=== PATIENT | female | born 1970 | race Caucasian/White ===

== ENCOUNTER → 2019-07-25 16:32 | Outpatient (CLI) | payer OTHER, SELFPAY ==
[2019-07-25 17:38] LABS: Follicle Stimulating Hormone 45.5 mIU/mL; Thyroid Stim Hormone (TSH) 2.38 uIU/mL (0.358-3.74)
== END ==
PROVIDERS: PCP Internal Medicine; Visit Provider Obstetrics & Gynecology
DX: E03.9 Hypothyroidism, unspecified (principal); R61 Generalized hyperhidrosis
CPT/HCPCS: 83001; 84443

== ENCOUNTER → 2020-08-07 17:09 | Outpatient (CLI) | payer OTHER, SELFPAY ==
[2020-08-07 18:23] LABS: Free T3 2.6 pg/mL (2.18-3.98); T4 Free Direct 0.97 ng/dL (0.76-1.46); Thyroid Stim Hormone (TSH) 3.88 uIU/mL (0.358-3.74)
[2020-08-13 04:29] LABS: HPV APTIMA, High Risk Negative (Negative)
[2020-08-13 09:43] LABS: HPV Reflexed? YES, CHARGE PATIENT
== END ==
PROVIDERS: PCP Internal Medicine; Visit Provider Student in an Organized Health Care Education/Training Program
DX: E03.9 Hypothyroidism, unspecified (principal); Z12.4 Encounter for screening for malignant neoplasm of cervix
CPT/HCPCS: 36415; 84439; 84443; 84481; 87624; 88175; G0145

== ENCOUNTER → 2020-09-11 15:24 | Outpatient (CLI) | payer OTHER, SELFPAY ==
--- NOTE | 2020-09-11 15:28 | BI_ITS ---
MAMMOGRAPHY - BILATERAL SCREENING REASON FOR EXAM: Female, 49 years old. Routine annual screening examination. PERTINENT HISTORY: Aunt with breast cancer. TECHNIQUE: Digital bilateral breast emeli (3D mammographic acquisition) in the CC and MLO projections. 2-D mediolateral oblique (MLO) and craniocaudad (CC) views of both breasts were obtained. CAD: Full Field Digital Mammography with Computer Added Detection was performed. COMPARISON: Comparison is made with prior study via 05/28/2017 and 05/07/2016. FINDINGS: Breast Composition: There are scattered areas of fibroglandular density. Focal cluster of microcalcification is seen in the upper lateral aspect of the right breast as compared to prior examination. The patient will be recalled for additional views including compression spot views. Stable small benign appearing bilateral axillary nodes. No other significant abnormalities are identified. BI/SCREEN MAMM (CAD) W/EMELI BILAT IMPRESSION: Focal cluster microcalcification seen in the upper lateral aspect of right breast as compared to prior study. The patient will be recalled for additional views including compression magnification spot views. Recall Side: Right Breast ASSESSMENT CATEGORY: BIRADS Category 0: Incomplete. Need additional imaging evaluation. A letter regarding these results will be sent to the patient by the facility within 30 days. Approximately 10% of breast cancers are not detected by mammography. A normal mammogram should not delay biopsy of a clinically suspicious abnormality. [id number] Electronically Signed: Colton Saleem, at 9:36 EST , Service support ,
== END ==
PROVIDERS: PCP Internal Medicine; Referring Provider Student in an Organized Health Care Education/Training Program; Visit Provider Student in an Organized Health Care Education/Training Program
DX: Z12.31 Encounter for screening mammogram for malignant neoplasm of breast (principal)
CPT/HCPCS: 77063; 77067

== ENCOUNTER → 2020-09-19 13:11 | Outpatient (CLI) | payer OTHER, SELFPAY ==
[2020-09-19 14:23] LABS: T4 Free Direct 1.21 ng/dL (0.76-1.46); Thyroid Stim Hormone (TSH) 2.39 uIU/mL (0.358-3.74)
== END ==
PROVIDERS: PCP Internal Medicine; Visit Provider Student in an Organized Health Care Education/Training Program
DX: E03.9 Hypothyroidism, unspecified (principal)
CPT/HCPCS: 36415; 84439; 84443

== ENCOUNTER → 2020-09-26 08:51 | Outpatient (CLI) | payer OTHER, SELFPAY ==
--- NOTE | 2020-09-26 08:52 | BI_ITS ---
MAMMOGRAPHY - BILATERAL SCREENING REASON FOR EXAM: Female, 49 years old. Routine annual screening examination. PERTINENT HISTORY: Abnormal screening mammogram. TECHNIQUE: Compression magnification views of the right breast were obtained. CAD: Full Field Digital Mammography with Computer Added Detection was performed. COMPARISON: Comparison is made with prior mammogram dated 09/11/2020. FINDINGS: Breast Composition: There are scattered areas of fibroglandular density. Persistent clustered microcalcification in the upper lateral aspect of the right breast. A biopsy is recommended. No other significant abnormalities are identified. BI/DIAG MAMM W/CAD, UNILAT IMPRESSION: Persistent cluster of microcalcifications as described. Biopsy is recommended. ASSESSMENT CATEGORY: BIRADS Category 4: Suspicious - Biopsy Should Be Considered. A letter regarding these results will be sent to the patient by the facility within 30 days. Approximately 10% of breast cancers are not detected by mammography. A normal mammogram should not delay biopsy of a clinically suspicious abnormality. [id number] Electronically Signed: Colton Saleem MD at 9:43 EST , Service support ,
== END ==
PROVIDERS: PCP Internal Medicine; Referring Provider Student in an Organized Health Care Education/Training Program; Visit Provider Student in an Organized Health Care Education/Training Program
DX: R92.8 Other abnormal and inconclusive findings on diagnostic imaging of breast (principal)
CPT/HCPCS: 77065

== ENCOUNTER → 2020-10-10 08:29 | Outpatient (CLI) | payer OTHER, SELFPAY ==
[2020-10-04 14:36] VITALS: BMI 41.9
--- NOTE | 2020-10-10 | BRBX_PTH ---
PATIENT: ADELITA CARNEY LOC: [facility] U#:[id number] AGE/SX: 54/F ROOM: RE10/10/[address]: Dr. Ayah Moran MD : 1970 BED: DIS: SPEC #: [id number] RECD: 10/10/20 11:19 STATUS: IVETH REEddie #: [id number] HUMZA: 10/10/20 00:[address]: Ayah Moran DEPT: SURGICAL PATHOLOGY RECD BY: Campos Kaufman ENTERED: 10/10/20 11:20 SP TYPE: BREAST BX OTHR DR: Dr. Carin Brennan MD Tissues: Right breast, NOS Procedures: Surgery Specimen Level IV HEADER OPERATION: Right breast stereotactic needle core biopsy PRE-OP DIAGNOSIS: Microcalcifications upper medial quadrant TISSUE SUBMITTED: Right breast ISCHEMIC TIME: 1 minute FIXATION TIME: 10 hours MICROSCOPIC DIAGNOSIS Right breast, stereotactic core biopsy: Fibroadenoma with clustered microcalcifications. Benign ducts with associated focal microcalcifications. AM:leilani 10/11/2020 MICROSCOPIC DESCRIPTION Slides are reviewed. GROSS DESCRIPTION Received is one container labeled with the patient's name and not further designated. The specimen consists of multiple irregular fragments of yellow-red soft tissue that in aggregate measure 5 x 3 x 0.2 cm. The specimen is totally submitted in two cassettes. / AM:leilani 10/10/20 TC:5 CPT: 86413
--- NOTE | 2020-10-10 10:36 | PCM.OPRPT ---
Report of Operation Date of Procedure: 10/10/20 Pre-Operative Diagnosis: Right breast microcalcifications?medial Post-Operative Diagnosis: Same Surgery/Procedure Performed:: Stereotactic guided right breast biopsy Specimen's removed: Right breast medial microcalcifications Estimated Blood Loss (mL): 40 cc Description of Procedure: Procedure: Right stereotactic core biopsy Indications: 49 year-old female with microcalcifications in the medial aspect of the right breast. Initial office note did say lateral; however there calcifications which are more clustered on the medial aspect the ones in the lateral or not as concerning an addendum was made to patient's mammography after discussing with the radiologist as well. Risk benefits were discussed the patient and she elected to proceed with stereotactic core biopsy with clip placement Description of procedure: Patient was brought into the mammography suite and laid prone on the stereotactic table. A timeout was completed verifying correct patient, procedure, site, specially, prior to beginning procedure. The right breast was prepped and draped in usual sterile fashion and using local anesthesia was obtained with 1% lidocaine. Patient's right breast was positioned and placed into compression. Initial film showed calcifications are in the center of the compression paddle. 15? views were then taken. The calcifications were localized. The left breast was prepped draped in usual sterile fashion. An 8-gauge mammotome was set up according to the digital coordinates. The tract of the mammotome was anesthetized with local anesthesia and an incision was made with the 11 blade scalpel at the entry site. The mammotome was advanced to the prefire state. Pre-prior films were checked and verified. The mammotome was fired. Post fire films were also checked and verified. Biopsies were taken from 9:00 to 2:00. The specimen was x-rayed and all the calcifications were within the specimen. Mammotome clip was placed at the 12 o'clock position. The mammotome was removed from the breast. An additional films were taken which showed all calcifications were removed and a clip was in place. Patient did have decent amount of bleeding likely a small arterial pressure has been held for an hour. 4-0 nylon suture was placed. Pressure was held for hemostasis. Did continue to watch the area for another 20 minutes there is minimal blood on dressing. Once hemostasis was assured the wound was dressed with OpSite. The patient tolerated the procedure well and was discharged from the mammography suite good condition. - Complications bleeding at site - controlled with pressure
== END ==
PROVIDERS: PCP Internal Medicine; Referring Provider Surgery; Visit Provider Surgery
DX: R92.0 Mammographic microcalcification found on diagnostic imaging of breast (principal)
CPT/HCPCS: 19081; 88305; J7050

== ENCOUNTER → 2021-01-25 07:57 | Outpatient (CLI) | payer OTHER, SELFPAY ==
[2021-01-09 16:05] VITALS: BMI 42.5
--- NOTE | 2021-01-25 08:02 | ECHOCS_ITS ---
Reason For Study: HTN Procedure This was a 2D Doppler, Color Flow transthoracic echocardiogram. The study was technically difficult. Contrast injection was performed. Exam performed in department. Left Ventricle Normal LV size. Left ventricular systolic function is normal. The estimated ejection fraction is 60 %. Stage 2 diastolic dysfunction. No regional wall motion abnormalities noted. Right Ventricle Normal RV size. Normal systolic function. Atria Normal left atrium. Normal right atrium. Mitral Valve Normal mitral valve. Tricuspid Valve Normal tricuspid valve. Mild (1+) tricuspid valve insufficiency. Pulmonary artery systolic pressure is 38 mmHg. Aortic Valve Trisinus/trileaflet aortic valve. Pulmonic Valve The pulmonic valve is not well visualized. Great Vessels Normal aortic root. The pulmonary artery is normal size. Normal inferior vena cava. Pericardium/Pleural No pericardial effusion. Medication 22 gauge I.V. with prn adaptor inserted into right arm. Diluted definity 3ml given slow IV push to enhance endocardial definition. MMode/2D Measurements & Calculations LVIDd: 5.1 cm IVSd: 0.68 cm Ao root diam: 3.3 cm LVIDs: 3.3 cm LVPWd: 0.71 cm RVDd: 3.5 cm FS: 34.8 % LAV(MOD-bp): 45.4 ml LA A4 area: 15.3 cm2 LA dimension(2D): 3.6 cm LAV(MOD-bp) Indexed: 20.7 ml/m2 LAV(MOD-sp2): 49.6 ml LAV(MOD-sp4): 40.2 ml RA A4 area: 13.5 cm2 Time Measurements MV dec time: 0.22 sec Doppler Measurements & Calculations MV E max xander: 87.6 cm/sec Lat Peak E' Xander: 8.7 cm/sec Med Peak E' Xander: 6.7 cm/sec MV A max xander: 80.1 cm/sec E/E' lat: 10.1 E/E' med: 13.1 MV E/A: 1.1 Ao V2 max: 131.0 cm/sec LV V1 max: 91.4 cm/sec PA V2 max: 83.6 cm/sec Ao max P.9 mmHg LV V1 max P.3 mmHg PI end-d xander: 92.6 cm/sec TR max xander: 292.6 cm/sec TR max P.2 mmHg ECHO/Echo Complete W/ Contrast Interpretation Summary Normal LV size. Left ventricular systolic function is normal. The estimated ejection fraction is 60 %. Stage 2 diastolic dysfunction. Ordering Physician: Zheng Osorio Referring Physician: LUCRECIA HARMON Performed By: Jennifer Cruz, JF, RVT
== END ==
PROVIDERS: PCP Internal Medicine; Referring Provider Internal Medicine Cardiovascular Disease; Visit Provider Internal Medicine Cardiovascular Disease
DX: I10 Essential (primary) hypertension (principal)
CPT/HCPCS: 93306; Q9957; A4216; C8929

== ENCOUNTER 2021-11-25 16:05 | Outpatient (CLI) | payer OTHER, SELFPAY ==
[2021-11-25 17:22] LABS: Free T3 2.5 pg/mL (2.18-3.98); T4 Free Direct 0.91 ng/dL (0.76-1.46); Thyroid Stim Hormone (TSH) 4.74 uIU/mL (0.358-3.74)
== END 2021-11-25 23:59 | disposition home or self-care (01) ==
LOC: WOBLAB 16:06
PROVIDERS: PCP Internal Medicine; Visit Provider Student in an Organized Health Care Education/Training Program
DX: E03.9 Hypothyroidism, unspecified (principal)
CPT/HCPCS: 36415; 84439; 84443; 84481

== ENCOUNTER 2021-12-03 15:46 | Outpatient (CLI) | payer OTHER, SELFPAY ==
--- NOTE | 2021-12-03 15:48 | BI_ITS ---
MAMMOGRAPHY - BILATERAL SCREENING REASON FOR EXAM: Female, 51 years old. Routine annual screening examination. PERTINENT HISTORY: Aunt with breast cancer. Prior right stereotactic breast biopsy for calcifications. TECHNIQUE: Digital bilateral breast emeli (3D mammographic acquisition) in the CC and MLO projections. 2-D mediolateral oblique (MLO) and craniocaudad (CC) views of both breasts were obtained. CAD: Full Field Digital Mammography with Computer Added Detection was performed. COMPARISON: Comparison is made with prior study dated 09/26/2020 and 09/11/2020. FINDINGS: Breast Composition: There are scattered areas of fibroglandular density. There are no dominant masses or suspicious calcifications. A tissue clip marker is seen in the medial retroareolar region of the right breast. The calcifications have decreased in number as compared to prior study. No other significant abnormalities are identified. BI/SCRN MAMM (CAD)W/EMELI BILAT IMPRESSION: Status post stereotactic biopsy of the calcifications in the right breast. Yearly follow-up mammogram recommended. (A) ASSESSMENT CATEGORY: BIRADS Category 2: Benign. A letter regarding these results will be sent to the patient by the facility within 30 days. Approximately 10% of breast cancers are not detected by mammography. A normal mammogram should not delay biopsy of a clinically suspicious abnormality. [id number] Electronically Signed: Colton Saleem MD at 8:22 EDT ,
== END 2021-12-03 23:59 | disposition home or self-care (01) ==
LOC: OPBI 15:46
PROVIDERS: PCP Internal Medicine; Referring Provider Student in an Organized Health Care Education/Training Program; Visit Provider Student in an Organized Health Care Education/Training Program
DX: Z12.31 Encounter for screening mammogram for malignant neoplasm of breast (principal)
CPT/HCPCS: 77063; 77067

== ENCOUNTER → 2022-02-28 | Outpatient (CLI) | payer OTHER, SELFPAY ==
[2022-02-28 12:16] LABS: Free T3 2.6 pg/mL (2.18-3.98); T4 Free Direct 0.94 ng/dL (0.76-1.46); Thyroid Stim Hormone (TSH) 1.97 uIU/mL (0.358-3.74)
== END | disposition home or self-care (01) ==
LOC: WOBLAB 11:12
PROVIDERS: PCP Internal Medicine; Visit Provider Student in an Organized Health Care Education/Training Program
DX: E03.9 Hypothyroidism, unspecified (principal)
CPT/HCPCS: 36415; 84439; 84443; 84481

== ENCOUNTER 2022-03-11 13:56 | Emergency (ER) | payer OTHER, SELFPAY ==
[2022-03-11 13:57] VITALS: BP 161/106; PULSE 108; RESP 18; TEMP 36.6; O2SAT 98; BMI 41.5
--- NOTE | 2022-03-11 15:02 | ED.VIS.GI ---
HPI HPI - GI History of Present Illness Chief Complaint: Abd Pain Narrative Narrative: 51-year-old female presenting with abdominal pain which is worse for 2 days. She states she feels like she is bloated. Intermittently she has some nausea but for the most part she does not. She describes cramping everywhere. She has not had a bowel movement in 2 days. She took Imodium today which did not improve her symptoms. Denies previous abdominal surgeries. No urinary complaints or vaginal complaints. No fever, chills. PFSH PFSH Medical History Depression Essential (primary) hypertension Hypothyroid Morbid obesity Home Medications citalopram 20 mg tablet 20 mg PO DAILY 10/04/20 [History Last Taken Unknown] hydrochlorothiazide 25 mg tablet 25 mg PO DAILY #90 tabs 07/15/21 [Rx Last Taken Unknown] levothyroxine 88 mcg tablet (Synthroid) 100 mcg PO DAILY 07/15/21 [History Last Taken Unknown] lisinopril 20 mg tablet 20 mg PO DAILY #90 tabs 07/15/21 [Rx Last Taken Unknown] dicyclomine 10 mg capsule 10 mg PO TID PRN cramps #20 caps 03/11/22 [Rx Last Taken Unknown] ondansetron 4 mg disintegrating tablet 4 mg PO Q8H PRN nausea and vomiting #14 tabs 03/11/22 [Rx Last Taken Unknown] Allergy/AdvReac Type Severity Reaction Status Date / Time benzoyl peroxide Allergy Mild Other Verified 03/11/22 13:59 hydrocodone [From Vicodin] Allergy Mild Other Verified 03/11/22 13:59 coconut Allergy lip Verified 03/11/22 13:59 swelling Family History Father Diabetes Hypertension CAD (coronary artery disease) CABG Mother Heart disease Thyroid disorder Son Cancer Uncle CAD (coronary artery disease) Myocardial infarction from [place] age 70 had previous CAD Surgical History H/O foot surgery History of endometrial ablation History of wisdom tooth extraction Social History Smoking Status: Never smoker alcohol intake: never ROS ROS ED Constitutional Constitutional ED: Denies chills or fever(s) ENT ENT ED: Denies rhinorrhea or sore throat Cardiovascular Cardiovascular: Denies chest pain or palpitations Respiratory/Chest Respiratory/Chest: Denies cough or dyspnea Gastrointestinal Gastrointestinal: Reports abdominal pain, constipation and nausea; Denies diarrhea Genitourinary Genitourinary ED: Denies dysuria or hematuria Musculoskeletal Musculoskeletal: Denies arthralgias or myalgias Integumentary Denies abscess Neurologic Neurologic: Denies headache(s) or paresthesias Psychiatric Psychiatric: Denies anxiety or depression EXAM Physical Exam Const Vital Signs: 03/11/22 13:57 03/11/22 17:06 Temperature 98 F Temperature Source Temporal Pulse Rate 108 H 74 Respiratory Rate 18 16 Blood Pressure 161/106 H 144/85 H Blood Pressure Mean 124 104 Pulse Ox 98 97 Oxygen Delivery Method Room Air Room Air Positive well nourished General Appearance ED: NAD; Negative for pallor HEENT Reports moist mucous membranes Eyes PERRL and EOMs intact bilaterally Resp normal respiratory effort and clear to auscultation bilaterally Cardio regular rate Rate: tachycardic GI GI Narrative: Benign abdomen. No peritoneal signs. Mild tenderness noted to the right upper quadrant without saba David sign. No CVA tenderness. Palpation: soft Back/Spine no CVA tenderness Neuro CN's II-XII intact bilaterally Sensorium / Orientation: alert, oriented to person, oriented to place and oriented to time Motor Exam: strength 5/5 throughout Psych mental status grossly normal Skin General Skin Exam: Negative for jaundice or pallor MDM MDM MDM Narrative Medical decision making narrative: Patient presenting with diffuse crampy abdominal pain. She initially reported constipation. I did blood work and her CBC and CMP are within normal limits. Lipase negative. Urinalysis negative for infection. Patient given morphine and Zofran and her symptoms did improved. I obtained an acute abdominal series which on my interpretation shows a nonobstructive gas pattern. The radiologist reads this as obstruction cannot be excluded. When I went back to evaluate the patient she states she had a couple episodes of diarrhea while she was here. She describes it as black but she also took Pepto-Bismol before coming. Her abdominal exam is benign. I did mortgage loan counselor her on with the radiologist had read but that I did not think she had an obstruction. She stated emphatically that she does not believe she does either. Patient will be given Zofran and Bentyl for home. She was given return precautions if her pain should become acutely worse or her nausea vomiting is uncontrolled. She is discharged home in stable condition. Impression: 1. Abdominal pain 2. Nausea 3. Constipation resolved Lab Data Attestation: I reviewed the patient's lab results. Labs: Laboratory Results - last 24 hr 03/11/22 03/11/22 03/11/22 15:10 15:10 15:25 WBC 8.9 RBC 4.65 Hgb 13.5 Hct 41.0 MCV 88.2 MCH 29.0 MCHC 32.9 RDW Std Deviation 45.0 H RDW Coeff of Cesar 14.0 Plt Count 262 MPV 9.5 Immature Gran % (Auto) 0.600 Neut % (Auto) 67.3 Lymph % (Auto) 24.8 Bowman % (Auto) 6.1 Eos % (Auto) 0.7 Baso % (Auto) 0.5 Absolute Neuts (auto) 6.0 Absolute Lymphs (auto) 2.20 Nucleated RBC % 0 Sodium 138 Potassium 3.9 Chloride 103 Carbon Dioxide 29.0 Anion Gap 6 BUN 11 Creatinine 0.72 Estim Creat Clear Calc 81.31 Est GFR (MDRD) Af Amer 108 Est GFR (MDRD) Non-Af 89 BUN/Creatinine Ratio 15.2 Glucose 113 H Calcium 9.1 Total Bilirubin 0.70 AST 20 ALT 31 Alkaline Phosphatase 100 Total Protein 7.6 Albumin 3.7 Globulin 3.9 Albumin/Globulin Ratio 0.9 Lipase 104 Urine Color Yellow Urine Clarity Clear Urine pH 7.0 Ur Specific Ackley 1.010 Urine Protein 15 H Urine Glucose (UA) Normal Urine Ketones Negative Urine Occult Blood Negative Urine Nitrite Negative Urine Bilirubin Negative Urine Urobilinogen Normal Ur Leukocyte Esterase 25 H Urine RBC 0 SEEN Urine WBC 0-5 SEEN Ur Squamous Epith Cells 0-5 SEEN Urine Bacteria 2+ Urine Mucus 0 SEEN Radiography Diagnostic Testing: Clinical Impression(s) from Imaging Studies Acute Abdomen Series 03/11/22 15:40 IMPRESSION: Air-fluid levels in the colon can suggest a gastroenteritis. Developing obstruction cannot be excluded. Recommend CT of the abdomen and pelvis to evaluate. Electronically Signed: Hiren Zambrano MD at 16:48 EDT , Discharge Plan Triage Chief Complaint: Abd Pain ED Provider: Suraj Naranjo Dx/Rx/DC Orders Instructions: ED Abdominal Pain Unkn Cause Fem Prescriptions: New dicyclomine 10 mg capsule 10 mg PO TID PRN (Reason: cramps) Qty: 20 0RF ondansetron 4 mg tablet,disintegrating 4 mg PO Q8H PRN (Reason: nausea and vomiting) Qty: 14 0RF No Action citalopram 20 mg tablet 20 mg PO DAILY levothyroxine [Synthroid] 88 mcg tablet 100 mcg PO DAILY hydrochlorothiazide 25 mg tablet 25 mg PO DAILY Qty: 90 3RF lisinopril 20 mg tablet 20 mg PO DAILY Qty: 90 3RF Primary Care Provider: Carin Brennan Referrals: Carin Brennan MD [Primary Care Provider] - Disposition Disposition: Home, Self Care Discharge Date/Time: 03/11/22 17:52
[2022-03-11 15:20] LABS: Basophil# 0.04 X10^3/uL; Basophil% 0.5 % (0-1); Eosinophil# 0.06 X10^3/uL; Eosinophils% 0.7 % (0-5); Hemoglobin 13.5 g/dL (12.0-15.0); Lymphocyte % 24.8 % (19-41); Mean Corp Hgb Conc 32.9 g/dL (32-36); Mean Corpuscular Volume 88.2 fL (81-99); Mean Platelet Vol. 9.5 fl (6.2-12.0); Monocyte# 0.54 X10^3/uL; Monocyte% 6.1 % (0-10); NRBC Flagged by Analyzer 0 % (0-5); Neutrophil # 5.99 X10^3/uL (2.7-7.7); Neutrophil % 67.3 % (47-70); Platelet Count 262 K/mm3 (150-450); Red Blood Count 4.65 M/mm3 (4.2-5.4); White Blood Count 8.9 K/mm3 (4.4-11.0)
[2022-03-11] MEDS: Morphine 4 MG/ML Syringe IV (15:20)
[2022-03-11] MEDS: Ondansetron 4 MG/2 ML Vial IV (15:21)
[2022-03-11 15:33] LABS: Mucous, Urine 0 SEEN /hpf (<or=2+); Red Blood Cells-Urine 0 SEEN /hpf (0-5)
[2022-03-11 15:37] LABS: ALB/GLOB Ratio 0.9 RATIO (0.9-2.4); AST(SGOT) 20 U/L (15-37); Alanine Aminotransfer ALT/SGPT 31 U/L (13-56); Albumin, Serum 3.7 g/dL (3.2-5.0); Alkaline Phosphatase 100 U/L (45-117); Anion Gap 6 (5-15); BUN 11 mg/dL (7-18); BUN/Creat Ratio 15.2 RATIO (10-20); Calcium,Total 9.1 mg/dL (8.5-10.1); Chloride 103 mmol/L (98-107); Creatinine, Serum 0.72 mg/dL (0.55-1.02); EST Glomerular Filtration Rate 89 mL/min (>60); Est Glom Filt Rate - Afr Amer 108 mL/min (>60); Estimated Creatinine Clearance 81.31 ml/min; Globulin 3.9 g/dL (2.2-4.2); Glucose 113 mg/dL (74-106); Lipase 104 U/L (73-393); Potassium 3.9 mmol/L (3.5-5.1); Protein, Total 7.6 g/dL (6.4-8.2); Sodium Level 138 mmol/L (136-145)
[2022-03-11 15:40] LABS: Color, Urine Yellow (Yellow); Glucose, Dipstick Normal (Normal); Ketone-Dipstick Negative (Negative); Leukocyte Esterase-Dipstick 25 /ul (Negative); Nitrite-Dipstick Negative (Negative); Occult Blood-Urine Negative /ul (Negative); Protein-Dipstick 15 mg/dl (Negative); Urine Bilirubin Dipstick Negative (Negative); Urine Clarity Clear (Clear); Urine Urobilinogen Normal (Normal)
--- NOTE | 2022-03-11 15:40 | RAD_ITS ---
EXAM: XR ABDOMEN, 2 VIEWS AND XR CHEST, 1 VIEW CLINICAL INDICATION: constipation TECHNIQUE: Frontal view of the chest, frontal view of the abdomen/pelvis and upright or decubitus view of the abdomen. This report was created using [employer] report [employer] technology. COMPARISON: None. FINDINGS: CHEST: LUNGS AND PLEURAL SPACES: Unremarkable. No consolidation or edema. No pneumothorax. No effusion. HEART: Unremarkable. Cardiac silhouette not enlarged. MEDIASTINUM: Central airways and mediastinal contour are unremarkable. ABDOMEN: INTRAPERITONEAL SPACE: No free air. GASTROINTESTINAL TRACT: Air-fluid levels in the colon can suggest a gastroenteritis. Developing obstruction cannot be excluded. Recommend CT of the abdomen and pelvis to evaluate. ORGANS: Unremarkable as visualized. No organomegaly. No abnormal calcifications. TUBES, LINES AND DEVICES: None. BONES/JOINTS: No acute findings. SOFT TISSUES: No acute findings. RAD/Acute Abdomen Inc Chest IMPRESSION: Air-fluid levels in the colon can suggest a gastroenteritis. Developing obstruction cannot be excluded. Recommend CT of the abdomen and pelvis to evaluate. Electronically Signed: Hiren Zambrano MD at 16:48 EDT ,
[2022-03-11 16:07] LABS: Bacteria 2+ /hpf (None Seen); Squamous Epithelial Cells - UA 0-5 SEEN /hpf (5-10); White Blood Cells 0-5 SEEN /hpf (0-5)
[2022-03-11 17:06] VITALS: BP 144/85; PULSE 74; RESP 16; O2SAT 97
[2022-03-11] MEDS: Dicyclomine 10 MG Capsule 20 MG PO (17:44)
== END 2022-03-11 17:52 | disposition home or self-care (01) ==
PROVIDERS: Emergency Provider Student in an Organized Health Care Education/Training Program; PCP Internal Medicine; Visit Provider Student in an Organized Health Care Education/Training Program
DX: R10.9 Unspecified abdominal pain (principal); R11.0 Nausea; I10 Essential (primary) hypertension; F32.A Depression, unspecified; E03.9 Hypothyroidism, unspecified; Z79.899 Other long term (current) drug therapy
CPT/HCPCS: 74022; 80053; 81001; 83690; 85025; 96374; 96375; 99283; J2405

== ENCOUNTER 2022-03-25 10:04 | Outpatient (RCR) | payer OTHER, SELFPAY | END 2022-04-06 23:59 | LOC: NS 10:04 | PROVIDERS: PCP Internal Medicine; Referring Provider Student in an Organized Health Care Education/Training Program; Visit Provider Student in an Organized Health Care Education/Training Program | DX: Z71.3 Dietary counseling and surveillance (principal); E66.01 Morbid (severe) obesity due to excess calories; Z68.41 Body mass index [BMI] 40.0-44.9, adult | CPT/HCPCS: 97802 ==

== ENCOUNTER 2022-05-06 16:00 | Outpatient (RCR) | payer OTHER, SELFPAY | END 2022-05-07 23:59 | LOC: NS 16:00 | PROVIDERS: PCP Internal Medicine; Referring Provider Student in an Organized Health Care Education/Training Program; Visit Provider Student in an Organized Health Care Education/Training Program | DX: Z71.3 Dietary counseling and surveillance (principal); E66.01 Morbid (severe) obesity due to excess calories; Z68.41 Body mass index [BMI] 40.0-44.9, adult | CPT/HCPCS: 97803 ==

== ENCOUNTER 2022-05-27 15:53 | Outpatient (RCR) | payer OTHER, SELFPAY | END 2022-06-06 23:59 | LOC: NS 15:53 | PROVIDERS: PCP Internal Medicine; Referring Provider Student in an Organized Health Care Education/Training Program; Visit Provider Student in an Organized Health Care Education/Training Program | DX: Z71.3 Dietary counseling and surveillance (principal); E66.01 Morbid (severe) obesity due to excess calories; Z68.41 Body mass index [BMI] 40.0-44.9, adult | CPT/HCPCS: 97803 ==

== ENCOUNTER → 2022-11-26 | Outpatient (CLI) | payer OTHER, SELFPAY ==
[2022-11-26 16:53] LABS: T4 Free Direct 1.13 ng/dL (0.76-1.46)
== END | disposition home or self-care (01) ==
LOC: WOBLAB 15:55
PROVIDERS: PCP Internal Medicine; Visit Provider Student in an Organized Health Care Education/Training Program
DX: E03.9 Hypothyroidism, unspecified (principal)
CPT/HCPCS: 36415; 84439; 84443

== ENCOUNTER 2023-08-20 06:30 | Emergency (ER) | payer OTHER, SELFPAY ==
[2023-08-20 06:31] VITALS: BP 145/92; PULSE 80; RESP 16; TEMP 36.2; O2SAT 94; BMI 41.2
[2023-08-20 07:15] LABS: Mucous, Urine 0 SEEN /hpf (<or=2+); Red Blood Cells-Urine 0 SEEN /hpf (0-5)
[2023-08-20 07:16] LABS: Absolute Neutrophil Count 3.7 X10^3/uL (2.0-7.7); Basophil# 0.04 X10^3/uL; Basophil% 0.6 % (0-1); Eosinophil# 0.16 X10^3/uL; Eosinophils% 2.3 % (0-5); Hematocrit 41.1 % (37-47); Hemoglobin 13.1 g/dL (12.0-15.0); Lymphocyte % 37.7 % (19-41); Mean Corp Hgb Conc 31.9 g/dL (32-36); Mean Corpuscular Hgb 27.9 pg (27.0-32.0); Mean Corpuscular Volume 87.6 fL (81-99); Mean Platelet Vol. 9.6 fl (6.2-12.0); Monocyte# 0.37 X10^3/uL; Monocyte% 5.4 % (0-10); NRBC Flagged by Analyzer 0 % (0-5); Neutrophil % 53.6 % (47-70); Platelet Count 256 K/mm3 (150-450); RBC Distribution Width CV 13.5 % (11.6-14.6); RBC Distribution Width SD 42.7 fl (35.1-43.9); Red Blood Count 4.69 M/mm3 (4.2-5.4); White Blood Count 6.9 K/mm3 (4.4-11.0)
--- NOTE | 2023-08-20 07:16 | EKG12_ITS ---
Test Reason : EOIGASTRIC PAIN Blood Pressure : / mmHG Vent. Rate : 068 BPM Atrial Rate : 068 BPM P-R Int : 176 ms QRS Dur : 086 ms QT Int : 420 ms P-R-T Axes : 018 003 -12 degrees QTc Int : 446 ms Normal sinus rhythm Inferior infarct , age undetermined Abnormal ECG Confirmed by LISA YOU, EDUAR ([id number]), newspaper or periodical editor GIANNA MORSE ([id number]) on 08/24/2023 1:57:21 P M Referred By: GUIDO Confirmed By:DILLON GONZALEZ MD
--- NOTE | 2023-08-20 07:17 | ED.VIS.GI ---
HPI HPI - GI History of Present Illness Chief Complaint: Abd Pain Detail of Chief Complaint: Abdominal pain Informant: patient Abdominal Pain/Flank Pain Current Severity: 12/15 Narrative Narrative: Patient presents the emergency department complaining of upper abdomen pain that started this morning while in the shower. She developed sudden onset of severe pain in the epigastric region that radiated towards the left side and through to her back. Pain lasted about 20 minutes and then she belches and seem to improve and now rates it 4 out of 10. She has some mild nausea. She has had no vomiting or diarrhea. She denies fevers. Denies eating any unusual foods or greasy foods last night. She has not had pain like this before. She denies chest pain or history of heart disease although there is a family history of heart disease. Patient denies any diarrhea. She denies blood in her stool or black tarry stool. [facility] Medical History Depression Essential (primary) hypertension Hypothyroid Morbid obesity Home Medications citalopram 20 mg tablet 20 mg PO DAILY 10/04/20 [History Last Taken Unknown] dicyclomine 10 mg capsule 10 mg PO TID PRN cramps #20 caps 03/11/22 [Rx Last Taken Unknown] ondansetron 4 mg disintegrating tablet 4 mg PO Q8H PRN nausea and vomiting #14 tabs 03/11/22 [Rx Last Taken Unknown] levothyroxine 100 mcg tablet (Synthroid) 100 mcg PO DAILY 07/10/22 [History Last Taken Unknown] lisinopril 20 mg tablet 20 mg PO DAILY #90 tabs 04/23/23 [Rx Last Taken Unknown] hydrochlorothiazide 25 mg tablet 25 mg PO DAILY #90 tabs 05/18/23 [Rx Last Taken Unknown] ondansetron 4 mg disintegrating tablet 4 mg PO Q8H PRN PRN Nausea #10 tabs 08/20/23 [Rx Last Taken Unknown] sulfamethoxazole 800 mg-trimethoprim 160 mg tablet 1 tab PO BID #6 TABLETS 08/20/23 [Rx Last Taken Unknown] Allergy/AdvReac Type Severity Reaction Status Date / Time benzoyl peroxide Allergy Mild Other Verified 08/20/23 06:35 hydrocodone [From Vicodin] Allergy Mild Other Verified 08/20/23 06:35 coconut Allergy lip Verified 08/20/23 06:35 swelling Family History Father Diabetes Hypertension CAD (coronary artery disease) CABG Mother Heart disease Thyroid disorder Son Cancer Uncle CAD (coronary artery disease) Myocardial infarction from [place] age 70 had previous CAD Surgical History H/O foot surgery History of endometrial ablation History of wisdom tooth extraction Social History Smoking Status: Never smoker alcohol intake: never ROS ROS ED Review of Systems ROS Unobtainable: other Constitutional Constitutional ED: Reports lethargy; Denies chills, fever(s), sweats or weight loss Eyes Eyes: Denies blurry vision, change in vision or diplopia ENT ENT ED: Denies rhinorrhea or sore throat Cardiovascular Cardiovascular: Denies chest pain, orthopnea or racing heartbeat Respiratory/Chest Respiratory/Chest: Denies cough, dyspnea, dyspnea on exertion, orthopnea or sputum Gastrointestinal Gastrointestinal: Reports abdominal pain and nausea; Denies diarrhea or vomiting Genitourinary Genitourinary ED: Denies dysuria, hematuria or urinary frequency Musculoskeletal Musculoskeletal: Denies arthralgias, back pain, myalgias or neck pain Integumentary Denies abscess, Abrasions or rash Neurologic Neurologic: Denies headache(s) or weakness Psychiatric Psychiatric: Denies anxiety, depression or suicidal thoughts Endocrine Endocrinology: Denies polydipsia, polyphagia or polyuria Hematologic/Lymphatic Hematologic/Lymphatic: Denies easy bleeding, easy bruising or lymphadenopathy Allergic/Immunologic Allergic/Immunologic ED: Denies mouth swelling, tongue swelling or urticaria EXAM Physical Exam Const Vital Signs: 08/20/23 06:31 Temperature 97.2 F L Temperature Source Temporal Pulse Rate 80 Respiratory Rate 16 Blood Pressure 145/92 H Blood Pressure Mean 109 Pulse Ox 94 Oxygen Delivery Method Room Air Positive well nourished and well developed General Appearance ED: well developed and NAD HEENT Reports TM's clear and moist mucous membranes normocephalic and atraumatic; Negative for trauma or tenderness Tympanic Membrane ED: Yes TM's clear Eyes PERRL and EOMs intact bilaterally General Eye ED: Negative for pale conjunctiva or scleral icterus Neck no lymphadenopathy, supple and no JVD General: Negative for tenderness Chest Wall inspection of chest normal and palpation of chest normal Chest: Negative for tenderness Resp normal respiratory effort and clear to auscultation bilaterally Effort and Inspection: Negative for respiratory distress or pain with movement Auscultation: Negative for rhonchi, wheezes or diminished lung sounds Cardio regular rate, regular rhythm, S1 normal heart sound, S2 normal heart sound and no murmurs Peripheral Pulses: pulses 2+ throughout GI normal to inspection, nondistended, normoactive bowel sounds, soft to palpation, non-distended and no masses GI Narrative: Tenderness to palpation in the epigastric region with some guarding. There is no rebound, rigidity, or cranial signs. She has negative David sign. No pain over McBurney's. Back/Spine no CVA tenderness and no thoracic nor lumbar tenderness Extremity normal to inspection General Extremety ED: Negative for edema General Extremity: Negative for edema Neuro oriented x3, CN's II-XII intact bilaterally, no sensory deficits noted and gait normal Sensorium / Orientation: awake, alert, oriented to person, oriented to place and oriented to time Motor Exam: strength 5/5 throughout and strength abnormal Psych mental status grossly normal Skin no rashes or lesions noted and no wounds MDM MDM MDM Narrative Medical decision making narrative: Patient presents with sudden onset of upper abdomen discomfort around 6 AM. Symptoms improved after belching. She denies any chest pain. In the differential would be GERD versus esophageal spasm versus coronary disease which I suspect is less likely. Pancreatitis or gallbladder disease potentially in differential. IV line established. CBC with differential obtained showing a 6.9 with hemoglobin 13 and platelet count of 256. Chemistries were normal. LFTs were normal. Glucose slightly elevated 142. hCG was negative. Urinalysis positive for nitrites as well as 25-50 WBCs and +3 bacteria. I did send off a urine culture. Started patient on Bactrim. While in the department initially she was medicate with Zofran and given a GI cocktail. Her nausea resolved. Patient's abdominal discomfort mostly resolved now after treatment with GI cocktail which she thinks really helped. At this point I suspect likely GERD or gastritis. She did have an EKG on arrival that showed a sinus rhythm with a rate of 68 bpm with no acute ST segment changes. And troponin was normal. Patient with an elevated lactate of 2.5 however etiology unclear as she is not having significant abdominal pain and I do not feel exam consistent with ischemic bowel disease. Clinically she looks well. Lab Data Attestation: I reviewed the patient's lab results. Labs: Laboratory Results - last 24 hr 08/20/23 08/20/23 08/20/23 07:03 07:08 07:43 WBC 6.9 RBC 4.69 Hgb 13.1 Hct 41.1 MCV 87.6 MCH 27.9 MCHC 31.9 L RDW Std Deviation 42.7 RDW Coeff of Cesar 13.5 Plt Count 256 MPV 9.6 Immature Gran % (Auto) 0.400 Neut % (Auto) 53.6 Lymph % (Auto) 37.7 [place] % (Auto) 5.4 Eos % (Auto) 2.3 Baso % (Auto) 0.6 Absolute Neuts (auto) 3.7 Absolute Lymphs (auto) 2.60 Nucleated RBC % 0 Sodium 140 Potassium 3.9 Chloride 106 Carbon Dioxide 29.0 Anion Gap 5 BUN 13 Creatinine 0.73 Estim Creat Clear Calc 79.28 Est GFR (MDRD) Af Amer 107 Est GFR (MDRD) Non-Af 89 BUN/Creatinine Ratio 17.9 Glucose 142 H Lactic Acid 2.5 H* Calcium 9.1 Total Bilirubin 0.40 AST 18 ALT 21 Alkaline Phosphatase 109 Troponin I High Sens 6 Total Protein 7.3 Albumin 3.6 Globulin 3.7 Albumin/Globulin Ratio 1.0 Lipase 26 Serum , Qual NEGATIVE Urine Color Yellow Urine Clarity Clear Urine pH 6.0 Ur Specific [place] 1.020 Urine Protein 15 H Urine Glucose (UA) Normal Urine Ketones Negative Urine Occult Blood 10 H Urine Nitrite Positive H Urine Bilirubin Negative Urine Urobilinogen Normal Ur Leukocyte Esterase 100 H Urine RBC 0 SEEN Urine WBC 25-50 SEEN Ur Squamous Epith Cells 0-5 SEEN Urine Bacteria 3+ Urine Mucus 0 SEEN EKG Initial EKG: Attestation: I personally reviewed and interpreted this EKG as follows: Comments: Sinus rhythm with rate of 68 bpm with no acute ST segment changes Discharge Plan Triage Chief Complaint: Abd Pain ED Provider: Brain Kirk Dx/Rx/DC Orders Clinical Impression: UTI (urinary tract infection), GERD (gastroesophageal reflux disease), Abdominal pain Instructions: ED Abdominal Pain Unkn Cause Fem, ED GERD (Adult), ED Cystitis Female Adult Prescriptions: New sulfamethoxazole-trimethoprim [sulfamethoxazole-trimethoprim] 800-160 mg tablet 1 tab PO BID Qty: 6 0RF ondansetron [ondansetron] 4 mg tablet,disintegrating 4 mg PO Q8H PRN PRN (Reason: Nausea) Qty: 10 0RF No Action citalopram 20 mg tablet 20 mg PO DAILY levothyroxine [Synthroid] 100 mcg tablet 100 mcg PO DAILY dicyclomine 10 mg capsule 10 mg PO TID PRN (Reason: cramps) Qty: 20 0RF ondansetron 4 mg tablet,disintegrating 4 mg PO Q8H PRN (Reason: nausea and vomiting) Qty: 14 0RF lisinopril 20 mg tablet 20 mg PO DAILY Qty: 90 3RF hydrochlorothiazide 25 mg tablet 25 mg PO DAILY Qty: 90 3RF Primary Care Provider: Carin Brennan Referrals: Carin Brennan MD [Primary Care Provider] - 3-5 Days Disposition Disposition: Home, Self Care Discharge Date/Time: 08/20/23 09:19
[2023-08-20 07:18] LABS: Color, Urine Yellow (Yellow); Glucose, Dipstick Normal (Normal); Ketone-Dipstick Negative (Negative); Leukocyte Esterase-Dipstick 100 /ul (Negative); Nitrite-Dipstick Positive (Negative); Occult Blood-Urine 10 /ul (Negative); Protein-Dipstick 15 mg/dl (Negative); Urine Bilirubin Dipstick Negative (Negative); Urine Clarity Clear (Clear); Urine Urobilinogen Normal (Normal)
--- NOTE | 2023-08-20 07:23 | ED.RN ---
NO OLD EKG
[2023-08-20 07:28] LABS: Internal QC Validated? YES +Cl - CLEAR BKGD; Pregnancy, Serum, hCG Quali. NEGATIVE Negative
[2023-08-20] MEDS: Ondansetron 4 MG/2 ML Vial IV (07:33)
[2023-08-20] MEDS: Mag Hydrox/Al Hydrox/Simeth 30 ML UDC PO (07:33)
[2023-08-20] MEDS: 0.9% Normal Saline (1000mL) 1,000 ML 150 ML IV (07:33)
[2023-08-20 07:46] LABS: Bacteria 3+ /hpf (None Seen); Squamous Epithelial Cells - UA 0-5 SEEN /hpf (5-10); White Blood Cells 25-50 SEEN /hpf (0-5)
[2023-08-20 07:52] LABS: AST(SGOT) 18 U/L (15-37); Alanine Aminotransfer ALT/SGPT 21 U/L (13-56); Albumin, Serum 3.6 g/dL (3.2-5.0); Alkaline Phosphatase 109 U/L (45-117); Anion Gap 5 (5-15); BUN 13 mg/dL (7-18); BUN/Creat Ratio 17.9 RATIO (10-20); Calcium,Total 9.1 mg/dL (8.5-10.1); Chloride 106 mmol/L (98-107); Creatinine, Serum 0.73 mg/dL (0.55-1.02); EST Glomerular Filtration Rate 89 mL/min (>60); Est Glom Filt Rate - Afr Amer 107 mL/min (>60); Estimated Creatinine Clearance 79.28 ml/min; Globulin 3.7 g/dL (2.2-4.2); Glucose 142 mg/dL (74-106); Potassium 3.9 mmol/L (3.5-5.1); Protein, Total 7.3 g/dL (6.4-8.2); Sodium Level 140 mmol/L (136-145)
[2023-08-20 08:15] LABS: Lipase 26 U/L (13-75); Troponin-I HS 6 pg/mL (3.0-54.0)
[2023-08-20 08:44] LABS: Lactic Acid 2.5 mmol/L (0.4-1.9)
[2023-08-20] MEDS: Smz/Tmp Ds Tablet 1 TABLET PO (08:50)
[2023-08-20 11:46] LABS: Reflex Lactate? Y
== END 2023-08-20 09:19 | disposition home or self-care (01) ==
PROVIDERS: Emergency Provider Emergency Medicine; PCP Internal Medicine; Visit Provider Emergency Medicine
DX: N39.0 Urinary tract infection, site not specified (principal); K21.9 Gastro-esophageal reflux disease without esophagitis; I10 Essential (primary) hypertension; R10.13 Epigastric pain; F32.A Depression, unspecified; E03.9 Hypothyroidism, unspecified; Z79.899 Other long term (current) drug therapy
CPT/HCPCS: 80053; 81001; 83605; 83690; 84484; 84703; 85025; 87086; 87088; 87186; 93005; 96374; 99284; J7030; A4216; J2405

== ENCOUNTER → 2023-12-17 | Outpatient (CLI) | payer OTHER, SELFPAY ==
--- NOTE | 2023-12-17 04:00 | MRI_ITS ---
EXAM: MR LEFT LOWER EXTREMITY WITHOUT INTRAVENOUS CONTRAST, ANKLE CLINICAL INDICATION: peroneal tendinitis TECHNIQUE: Multiplanar and multisequence MR images of the left ankle without intravenous contrast. COMPARISON: No relevant prior studies available. FINDINGS: LIGAMENTS: ANTERIOR TALOFIBULAR: Unremarkable. Intact. POSTERIOR TALOFIBULAR: Unremarkable. Intact. ANTERIOR TIBIOFIBULAR: Unremarkable. Intact. POSTERIOR TIBIOFIBULAR: Unremarkable. Intact. CALCANEOFIBULAR: Unremarkable. Intact. DELTOID: Intact deltoid ligamentous complex. SPRING: Unremarkable. Intact. LISFRANC: Unremarkable. Intact. TENDONS: ACHILLES: Unremarkable. Intact. FLEXOR: Unremarkable. Intact. EXTENSOR: Unremarkable. Intact. PERONEAL: Peroneal tenosynovitis with intact peroneal tendons. Mild tenosynovitis involving the posterior tibial tendon which is also intact. TIBIALIS ANTERIOR: Unremarkable. Intact. TIBIALIS POSTERIOR: See above. MUSCLES: Unremarkable. Normal bulk and signal. FLUID: Unremarkable. No joint effusion. SINUS TARSI: Unremarkable. Normal fat in the sinus tarsi. TARSAL TUNNEL: Unremarkable. PLANTAR FASCIA: Unremarkable. Intact. CARTILAGE: Unremarkable. No osteochondral lesion. Articular cartilage intact. BONES/JOINTS: Intact lateral ligamentous complex. Small focal marrow signal alteration in the subchondral aspect of the lateral condyle suggesting a focal osteochondral impaction injury. Talar dome intact. OTHER SOFT TISSUES: Unremarkable. MRI/Lower Ext Joint Only (Routine) IMPRESSION: 1. Peroneal tenosynovitis with intact peroneal tendons. Mild tenosynovitis involving the posterior tibial tendon which is also intact. 2. Small focal marrow signal alteration in the subchondral aspect of the lateral condyle suggesting a focal osteochondral impaction injury. Electronically Signed: Joni Singh MD at 22:25 EDT ,
--- NOTE | 2023-12-17 15:28 | MRI_ITS ---
STUDY: MRI LEFT MIDFOOT REASON FOR EXAM: Female, 53 years old. Left foot pain. Pain lateral foot/ankle. Injury 3-4 weeks ago. TECHNIQUE: Standardized fat and water weighted pulse sequences were obtained in all 3 orthogonal planes. COMPARISON: None. FINDINGS: Normal talonavicular articulation. Normal calcaneocuboid articulation. Normal navicular-cuneiform articulations. Normal intercuneiform articulations. Normal first tarsometatarsal articulation. Normal Lisfranc ligament. Normal second and third tarsometatarsal articulations. Normal cuboid fourth and cuboid fifth tarsometatarsal articulation. Normal first through fifth metatarsi. There is no demonstrated fracture of the metatarsal bones. Normal tibialis anterior tendon. Normal extensor hallucis longus tendon. Normal extensor digitorum longus tendons. There is minimal peroneal tenosynovitis. Intact peroneus longus tendon and distal insertion. Intact peroneus brevis tendon and distal insertion. Normal intrinsic muscles of the mid and forefoot region. Normal extensor digitorum brevis muscle. There is minimal subcutaneous soft tissue edema along the dorsum of the midfoot (axial STIR series 7 images 9-12). There is no demonstrated soft tissue mass lesion. MRI/Lower Ext/No Jt/w/o IMPRESSION: Minimal subcutaneous soft tissue edema along the dorsum of the midfoot. No acute fracture. Minimal peroneal tenosynovitis. No peroneal tendon tear. Electronically Signed: Aayush Price MD at 8:28 EDT ,
== END | disposition home or self-care (01) ==
LOC: MRI 15:17
PROVIDERS: PCP Internal Medicine; Referring Provider Student in an Organized Health Care Education/Training Program; Visit Provider Student in an Organized Health Care Education/Training Program
DX: M79.672 Pain in left foot (principal)
CPT/HCPCS: 73718; 73721

== ENCOUNTER 2024-04-19 09:30 | Outpatient (RCR) | payer OTHER, SELFPAY ==
--- NOTE | 2024-03-24 09:16 | HP.PTEVAL_ITS ---
Patient's Visit Information Visit Information Visit Information: ADELITA CARNEY is a 53 year old F referred to Physical Therapy by Dr. Joe Collins DPM with a diagnosis of Plantar Fascitis, Calf Muscle Strain. Date of Evaluation: 03/24/24 Physical Therapist: Chana Pizano DPT Visit Plan Frequency: 2x /Week Duration: 4 Weeks Plan: Ultrasound, Stretching, Manual, Proprioception and [employer] HEP Given: Towel Gastroc Stretching Subjective Subjective: Oct 2023 she tripped over the dog gate- she has been working with Dr. Collins-she bruised and stretched her left ankle- in February she did a lot of walking and has plantar fasciitis flaring up on the left foot. She was working in the garden the other day and twisted it and its not as bad as it was. The pain is normally in the heel. Worst: 3/10 Agg: walking greater than 2 hours. The longer she is on her foot the worse it gets. Best: 0/10 Early in the AM she is pain free. Eases: rolling over a golf ball, ice. She has voltaran gel but she has not noticed a difference. No pain that radiates. Describes the pain as sharp. No N/T. She does not wear orthotics in her shoes. He just recommended power steps. She only wears sandals so she just ordered the sandles. She wears Asics which she loves- but she does not wear them very often. She wears crocs most of the time. 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 Sleep: not disturbed. PMHx: HTN, thyroid, depression Meds: losartin, oxybutin, synthroid, citlopram, hydrochorothyozide, omperozol. Objective Objective: Posture: forward head, rounded shoulders Gait: moderate pes planus- no significant deviations noted HR/TR: able without UE A SLS: 5 sec then LOB- increased pes planus Palpation: tender along heel and medial plantar fascia- achilles tendon ROM: DF: neutral, PF: 60 degrees, Ever: 30 degrees, Inv: 40 degrees Strength: Core: fair, Knee: 5/5, Hip: 4/5, Ankle: 4+/5 throughout Flex: HS: moderate, Gastroc: severe, Soleus: moderate Special Test: Windlass Mechanism: positive Balance/Special Test Scores Lower Extremity Functional Score: 61 Goals Goal 1:: Patient will be I with HEP and progression Goal Time Frame: 4-6 Weeks Goal 2:: Patient will demo 10 degrees of DF of the left ankle Goal Time Frame: 4-6 Weeks Goal 3:: Patient will SLS for 10 seconds without LOB Goal Time Frame: 4-6 Weeks Goal 4:: Patient will report 80% Improvement Goal Time Frame: 4-6 Weeks Rehabilitation Potential Physical Therapy Diagnosis: Patient presents with hypomobility- she has decreased LE and core strength/stabilization, flex, proprioception and muscular endurance leading to increased pain with ambulation and ADL's Anticipated Interventions Patient/Client Instruction: Educate patient on: Benefits of Fitness Program Therapeutic Exercise to Include: Strength training, Endurance training, Balance training, Coordination, Agility training, Body mechanics, Postural training, Flexibilty training, Gait and locomotor training, Neuromotor development, Dynamic Lumbar Stabilization and Scapular Strength/Stabilization For the Purpose of:: To improve muscle performance and motor function TENS: Yes Cryotherapy (ice pack, ice massage): Yes Thermo therapy (hot pack): Yes Ultrasound (thermal/non thermal): Yes Text: Thank you for the opportunity to evaluate your patient. For Medicare and Medicare HMO plans, please review the plan of care and approve it. It will need to be FAXED BACK to us at [phone] for Medicare purposes. For Medicare only, by signing this I certify the plan of care. Please let me know if there are questions or concerns regarding this plan of care. Physician Signature: _Date:
--- NOTE | 2024-04-19 10:02 | HP.PTDCSUM ---
Discharge Summary D/C summary: It has been my pleasure to treat ADELITA CARNEY referred by Dr. Joe Collins, DPM, with the diagnosis of Plantar Fascitis, Calf Muscle Strain for a total of 7 visit(s). Discharge Date: Please see the following information for a summary of their discharge status. Subjective Subjective: Pt reports her pain ranges between 1-7/10 Pain L foot: Pain Intensity (Out of 10): 1 Overall Improvement % Improvement: 75 Objective Objective/Function: L foot pain ranges from 1-7/10 L foot DF ROM 2 degrees Pt is able to SLS for 8 seconds Pt is I with HEP Goals Goal 1:: Patient will be I with HEP and progression Goal Progress: Goal Met Goal 2:: Patient will demo 10 degrees of DF of the left ankle Goal Progress: Progressing Goal 3:: Patient will SLS for 10 seconds without LOB Goal Progress: Progressing Goal 4:: Patient will report 80% Improvement Goal Progress: Progressing Plan Plan: Discontinue to HEP D/C Information d/c sentence: If there are questions or concerns regarding this patient's physical therapy, please feel free to call me at [phone]. Thank you for the referral of this patient. Sincerely, Hiren Wells, PT, ATC Balance/Gait/Functional tests Balance/Special Test Scores Lower Extremity Functional Score: 52 Improvement % Improvement: 75
== END 2024-04-19 10:08 | disposition home or self-care (01) ==
LOC: PT 09:30
PROVIDERS: PCP Internal Medicine; Referring Provider Student in an Organized Health Care Education/Training Program; Visit Provider Student in an Organized Health Care Education/Training Program
DX: M76.72 Peroneal tendinitis, left leg (principal); S86.111D Strain of other muscle(s) and tendon(s) of posterior muscle group at lower leg level, right leg, subsequent encounter; M72.2 Plantar fascial fibromatosis
CPT/HCPCS: 97035; 97140; 97162; 97530